=== PATIENT | female | born 1985 | race American Indian/Alaskan Native ===

== ENCOUNTER 2016-10-29 09:31 | Emergency (ER) | payer MEDICAID, OTHER ==
[2016-10-29 09:44] VITALS: BP 103/69
[2016-10-29 10:13] LABS: Basophils % (Auto) 0.8 % (0.0-1.8); Eosinophils % (Auto) 2.9 % (0.0-4.3); Hematocrit 38.5 % (30.3-42.9); Hemoglobin 12.9 gm/dl (10.1-14.3); Mean Corpuscular HGB Conc 34 % (30-34); Mean Corpuscular Hemoglobin 28 pg (28-32); Mean Corpuscular Volume 85 fl (79-97); Platelet Count 275 K/mm3 (140-440); Red Blood Count 4.53 M/mm3 (3.65-5.03); Red Cell Distribution Width 13.6 % (13.2-15.2)
[2016-10-29 10:17] LABS: INR 1.05 (0.87-1.13)
[2016-10-29 10:18] LABS: Partial Thromboplastin Time 28.3 Sec. (24.2-36.6)
[2016-10-29 10:22] LABS: Anion Gap 15 mmol/L; BUN/Creatinine Ratio 18.33; Blood Urea Nitrogen 11 mg/dL (7-17); Calcium 8.9 mg/dL (8.4-10.2); Carbon Dioxide 27 mmol/L (22-30); Chloride 102.4 mmol/L (98-107); Glucose 80 mg/dL (65-100); Potassium 3.9 mmol/L (3.6-5.0); Sodium 140 mmol/L (137-145)
[2016-10-29 11:01] LABS: Bilirubin,Urine NEG (Negative); Blood,Urine NEG (Negative); Ketones,Urine NEG (Negative); Leukocyte Esterase,Urine NEG (Negative); Mucus,Urine FEW /HPF; Nitrite,Urine NEG (Negative); Protein,Urine <15 mg/dL mg/dL (Negative); RBC,Urine < 1.0 /HPF (0.0-6.0); Urobilinogen,Urine < 2.0 mg/dL (<2.0); WBC,Urine < 1.0 /HPF (0.0-6.0)
== END 2016-10-29 13:56 | disposition left against medical advice (07) ==
LOC: ED 09:31
DX: M79.604 Pain in right leg (principal); R22.41 Localized swelling, mass and lump, right lower limb; R07.89 Other chest pain; D64.9 Anemia, unspecified; Z72.0 Tobacco use; Z53.21 Procedure and treatment not carried out due to patient leaving prior to being seen by health care provider
CPT/HCPCS: 36415; 80048; 81001; 81025; 84484; 85025; 85610; 85730; 93005; 93010

== ENCOUNTER 2017-06-12 20:53 | Emergency (ER) | payer OTHER, MEDICAID ==
[2017-06-12 22:06] LABS: HCG Qualitative,Urine Negative (Negative)
[2017-06-12 23:16] LABS: Bilirubin,Urine NEG (Negative); Blood,Urine NEG (Negative); Color,Urine Yellow (Yellow); Mucus,Urine FEW /HPF; Protein,Urine <15 mg/dL mg/dL (Negative); Urobilinogen,Urine < 2.0 mg/dL (<2.0)
--- NOTE | 2017-06-12 23:34 | XRay Report ---
FINAL REPORT EXAM: XR SPINE CERVICAL 2-3V HISTORY: Neck pain TECHNIQUE: Four views of the cervical spine: AP, lateral and odontoid views. PRIORS: None. FINDINGS: There is mild loss of the usual cervical lordosis. Vertebral body heights are preserved and there is no abnormal vertebral body subluxation. The prevertebral soft tissues within normal limits. The atlanto dens interval is preserved. The lateral masses are well opposed. No cervical ribs. Lung apices clear. IMPRESSION: No acute osseous abnormality. Mild loss of the usual cervical lordosis may be secondary to patient positioning or muscle spasm.
--- NOTE | 2017-06-12 23:36 | XRay Report ---
FINAL REPORT EXAM: XR SPINE LUMBOSACRAL 2-3V HISTORY: Back pain TECHNIQUE: Four views of the lumbar spine: AP and lateral projections. PRIORS: None. FINDINGS: Convex left thoracolumbar curvature is present. There are 5, [id number] lumbar vertebral bodies. No pathologic calcifications overlie the abdomen. The posterior elements are intact and there is no spondylolisthesis. Vertebral body heights and intervertebral disc spaces are preserved. IMPRESSION: No acute osseous abnormality or significant degenerative change. Mild convex left thoracolumbar curvature.
[2017-06-13] MEDS ORDERED: MOTRIN PO ONE (01:38)
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
[2017-06-13 02:16] VITALS: BP 103/67
== END 2017-06-13 02:18 | disposition home or self-care (01) ==
LOC: ED 20:53
DX: S13.4XXA Sprain of ligaments of cervical spine, initial encounter (principal); R51 Headache; V89.2XXA Person injured in unspecified motor-vehicle accident, traffic, initial encounter; Y93.89 Activity, other specified; Y92.89 Other specified places as the place of occurrence of the external cause; Y99.8 Other external cause status
CPT/HCPCS: 72040; 72100; 81001; 81025; 93005; 93010

== ENCOUNTER 2017-12-19 17:22 | Outpatient (CLI) | payer MEDICAID ==
--- NOTE | 2017-12-19 19:52 | Ultrasound Report ---
FINAL REPORT EXAM: US OB LIMITED HISTORY: Please measure cervical length COMPARISON: None available. TECHNIQUE: Several real-time grayscale and color Doppler images were obtained. FINDINGS: Limited exam performed. Single live IUP. heart rate 141 beats per minute. presentation cephalic. Placenta location anterior. No placenta previa. The cervix is closed and measures 3.1 centimeters in length. IMPRESSION: Limited exam. Single live IUP demonstrated with cephalic position. Cervix is closed measuring 3.1 centimeters in length.
[2017-12-19] MEDS ORDERED: CELESTONE SOLUSPAN IM ONE (20:27)
[2017-12-19 20:35] VITALS: BP 100/58
[2017-12-19 22:52] LABS: Bilirubin,Urine NEG (Negative); Blood,Urine NEG (Negative); Color,Urine Yellow (Yellow); Mucus,Urine 3+ /HPF
[2017-12-19 22:58] LABS: Amphetamine Screen,Urine PRESUMPTIVE NEGATIVE; Benzodiazepines Screen,Urine PRESUMPTIVE NEGATIVE; Methadone Screen,Urine PRESUMPTIVE NEGATIVE; Opiate Screen,Urine PRESUMPTIVE NEGATIVE
[2017-12-19 23:19] LABS: Cannabinoid Screen,Urine PRESUMPTIVE POSITIVE; Cocaine Screen,Urine PRESUMPTIVE POSITIVE
--- NOTE | 2017-12-21 07:46 | Event Note ---
Date: 12/19/17 Triage note for 12/19/17: 32 year old female presents to triage for EFM. She states she was told by her OB provider to come in for monitoring yesterday but she did not have child welfare specialist so she waited until today. She states she had a positive fibronectin test at the office so was told to come monitor for contractions. Patient denies contractions or abdominal pain. She denies LOF or VB. She reports active movement. EDC 02/19/18. EGA 26 weeks. Vital signs are stable, patient is A&O, NAD. Abdomen is soft, nontender. No contractions palpated or noted per monitor. Category 1 FHR tracing, appropriate for gestational age. Cervix closed and thick. Patient was found not to be in active labor. Patient was given her first Celestone injection and was told to follow up tomorrow for her second Celestone injection. Advised pt. to rest and avoid IC /sexual activity. Signs of labor and warning signs discussed. Advised pt. to follow up at [facility] this week.
== END 2017-12-19 20:50 | disposition home or self-care (01) ==
LOC: TRG 17:22
PROVIDERS: ATTEND Obstetrics & Gynecology
DX: O47.02 False labor before 37 completed weeks of gestation, second trimester (principal); Z3A.26 26 weeks gestation of pregnancy
CPT/HCPCS: 59025; 76815; 80307; 81001; 96372; J0702

== ENCOUNTER 2017-12-20 23:02 | Outpatient (CLI) | payer MEDICAID ==
[2017-12-20] MEDS ORDERED: CELESTONE SOLUSPAN IM ONE (23:13)
[2017-12-20 23:36] VITALS: BP 105/69
--- NOTE | 2017-12-21 07:39 | Event Note ---
Date: 12/20/17 Triage note for 12/20/17 32 year old at 26 weeks, 1 day gestation presents for second Celestone injection only. Patient reports active movement while here in triage. EFM cat 1/AGA. No contractions, LOF, or VB. Patient received Celestone injection and was told to follow up at [facility] early this week.
== END 2017-12-21 00:15 | disposition home or self-care (01) ==
LOC: TRG 23:02
PROVIDERS: ATTEND Obstetrics & Gynecology
DX: O36.0120 Maternal care for anti-D [Rh] antibodies, second trimester, not applicable or unspecified (principal); O36.8120 Decreased fetal movements, second trimester, not applicable or unspecified; Z3A.26 26 weeks gestation of pregnancy
CPT/HCPCS: 59025; 96372; J0702

== ENCOUNTER 2018-04-08 16:18 | Emergency (ER) | payer MEDICAID ==
[2018-04-08 17:20] LABS: Basophils % (Auto) 0.7 % (0.0-1.8); Eosinophils # (Auto) 0.1 K/mm3 (0.0-0.4); Eosinophils % (Auto) 2.2 % (0.0-4.3); Hematocrit 33.2 % (30.3-42.9); Lymphocytes % (Auto) 30.8 % (13.4-35.0); Mean Corpuscular HGB Conc 33 % (30-34); Mean Corpuscular Volume 83 fl (79-97); Monocytes # (Auto) 0.4 K/mm3 (0.0-0.8); Monocytes % (Auto) 6.6 % (0.0-7.3); Platelet Count 401 K/mm3 (140-440); Red Blood Count 4.02 M/mm3 (3.65-5.03); Red Cell Distribution Width 14.7 % (13.2-15.2)
[2018-04-08 17:38] LABS: BUN/Creatinine Ratio 13; Blood Urea Nitrogen 9 mg/dL (7-17); Hemolysis Index 6
[2018-04-08] MEDS ORDERED: PROVENTIL IH ONE (20:09)
[2018-04-08] MEDS ORDERED: ATROVENT IH ONE (20:09)
[2018-04-08] MEDS ORDERED: TESSALON PERLES PO ONE (20:10)
--- NOTE | 2018-04-08 20:28 | XRay Report ---
FINAL REPORT EXAM: XR CHEST ROUTINE 2V HISTORY: Shortness of breath TECHNIQUE: PA and lateral views of the chest PRIORS: CXR 03/21/2018 FINDINGS: Lines, tubes, and devices: N/A Lungs and pleura: Trachea is normal in position. Lungs are clear of infiltrate, pleural effusion, va scular congestion, or pneumothorax. No change. Cardiomediastinal silhouette: Cardiac and mediastinal silhouettes are unremarkable. Other: Bony structures are intact. IMPRESSION: No acute cardiopulmonary process seen. No change.
--- NOTE | 2018-04-08 20:47 | Emergency Department Report ---
HPI - General Chief Complaint: Chest Pain Time Seen by Provider: 04/08/18 20:00 - HPI HPI: Nicola Randhawa The patient is a 33-year-old female presenting with a chief complaint of chest pain and cough. The patient states she's had an occasional cough since 03/06 has been productive of yellow sputum. The patient states for one week she's had chest pain as well as back pain is sharp in nature and intermittent. Patient denies pleurisy but admits to slight shortness of breath. Patient denies fever but admits to slight rhinorrhea. Her pain score of 7/10. The patient is 03/15/2018 Location: Lungs, chest Duration: One week, see above Quality: Sharp Severity: 7/10 Modifying factors: [see above] Context: [see above] Mode of transportation: The patient drove herself to the emergency department and there are no visitors present ED Past Medical Hx - Past Medical History Previous Medical History?: Yes Additional medical history: anemia. Preeclampsia with previous but not last - Surgical History Past Surgical History?: Yes Additional Surgical History: Ectopic , Right foot surgery, - Family History Family history: no significant - Social History Smoking Status: Former Smoker (none 4 years) Substance Use Type: None (denies illicit drug use) - Medications Home Medications: Home Medications Medication Instructions Recorded Confirmed Last Taken Type Aspirin [Aspirin EC] 1 tab PO QDAY 03/14/18 03/22/18 2 Days Ago History ~03/20/18 Cholecalciferol (Vitamin D3) 1 tab PO QDAY 03/14/18 03/22/18 2 Days Ago History [Vitamin D3] ~03/20/18 Ferrous Sulfate [Feosol 325 MG tab] 1 tab PO QDAY 03/14/18 03/22/18 2 Days Ago History ~03/20/18 Pnv,Calcium 72/Iron/Folic Acid 1 tab PO QDAY 03/14/18 03/22/18 2 Days Ago History [Pnv Plus Multivit Tab] ~03/20/18 Ibuprofen [Motrin 800 MG tab] 800 mg PO Q8HR PRN 30 Days tablet 03/15/18 03/22/18 2 Days Ago Rx ~03/20/18 oxyCODONE /ACETAMINOPHEN [Percocet 1 tab PO Q4HR #14 tab 03/15/18 03/22/18 2 Days Ago Rx 5/325 mg] ~03/20/18 guaiFENesin DM [Guaifenesin Dm 10 ml PO Q4H PRN #1 bottle 03/24/18 Unknown Rx Syrup] ALBUTEROL Inhaler (OR & NICU) 2 puff IH QID PRN #1 inhalation 04/08/18 Unknown Rx [Proair] Amoxicillin/Potassium Clav 1 each PO BID #20 tablet 04/08/18 Unknown Rx [Augmentin 875-125 Tablet] Benzonatate [Tessalon Perle] 100 mg PO TID PRN #30 capsule 04/08/18 Unknown Rx ED Review of Systems ROS: Stated complaint: CHEST PAIN/COUGHING Other details as noted in HPI Constitutional: denies: fever Eyes: denies: eye pain ENT: denies: throat pain Respiratory: cough, shortness of breath Cardiovascular: chest pain Endocrine: no symptoms reported Gastrointestinal: denies: abdominal pain Genitourinary: denies: dysuria Musculoskeletal: back pain Neurological: denies: headache Physical Exam - Physical Exam Vital Signs: Vital Signs 04/08/18 04/08/18 16:33 19:45 Temperature 97.7 F 98.3 F Pulse Rate 84 80 Respiratory 20 16 Rate Blood Pressure 107/59 110/82 O2 Sat by Pulse 99 99 Oximetry Physical Exam: GENERAL: The patient is well-developed well-nourished female lying on stretcher not appearing to be in acute distress. [] HEENT: Normocephalic. Atraumatic. Extraocular motions are intact. Patient has moist mucous membranes. NECK: Supple. Trachea midline CHEST/LUNGS: Clear to auscultation. There is no respiratory distress noted. HEART/CARDIOVASCULAR: Regular. There is no tachycardia. There is no gallop rub or murmur. ABDOMEN: Abdomen is soft, nontender. Patient has normal bowel sounds. There is no abdominal distention. SKIN: There is no rash. There is no edema. There is no diaphoresis. NEURO: The patient is awake, alert, and oriented. The patient is cooperative. The patient has normal speech MUSCULOSKELETAL: There is no evidence of acute injury. ED Course Vital Signs 04/08/18 04/08/18 16:33 19:45 Temperature 97.7 F 98.3 F Pulse Rate 84 80 Respiratory 20 16 Rate Blood Pressure 107/59 110/82 O2 Sat by Pulse 99 99 Oximetry ED Medical Decision Making - Lab Data Result diagrams: 04/08/18 16:59 04/08/18 16:59 Laboratory Tests 04/08/18 04/08/18 04/08/18 16:59 16:59 20:21 WBC 6.6 RBC 4.02 Hgb 11.0 Hct 33.2 MCV 83 MCH 27 L MCHC 33 RDW 14.7 Plt Count 401 Lymph % (Auto) 30.8 Johnston % (Auto) 6.6 Eos % (Auto) 2.2 Baso % (Auto) 0.7 Lymph # 2.0 Johnston # 0.4 Eos # 0.1 Baso # 0.0 Seg Neutrophils % 59.7 Seg Neutrophils # 4.0 Sodium 139 Potassium 3.8 Chloride 102.4 Carbon Dioxide 27 Anion Gap 13 BUN 9 Creatinine 0.7 Estimated GFR > 60 BUN/Creatinine Ratio 13 Glucose 95 Calcium 9.0 Troponin T < 0.010 < 0.010 NT-Pro-B Natriuret Pep 04/08/18 20:21 WBC RBC Hgb Hct MCV MCH MCHC RDW Plt Count Lymph % (Auto) Johnston % (Auto) Eos % (Auto) Baso % (Auto) Lymph # Johnston # Eos # Baso # Seg Neutrophils % Seg Neutrophils # Sodium Potassium Chloride Carbon Dioxide Anion Gap BUN Creatinine Estimated GFR BUN/Creatinine Ratio Glucose Calcium Troponin T NT-Pro-B Natriuret Pep 25.32 - EKG Data -: EKG Interpreted by Me EKG shows normal: sinus rhythm Rate: normal - EKG Data When compared to previous EKG there are: previous EKG unavailable Interpretation: other (no ischemic changes seen) - Radiology Data Radiology results: report reviewed (chest x-ray, CT chest), image reviewed (chest x-ray, CT chest) interpreted by me: Chest x-ray-no focal infiltrates, no pneumothorax [facility] [address] [place] [address] XRay Report Signed Patient: LOLLY KILGORE MR#: [id number] : 1985 Acct:[id number] Age/Sex: 33 / F ADM Date: 04/08/18 Loc: ED Attending Dr: Ordering Physician: PAO MONK MD Date of Service: 04/08/18 Procedure(s): XR chest routine 2V Accession Number(s): [id number] cc: PAO MONK MD Fluoro Time In Minutes: FINAL REPORT EXAM: XR CHEST ROUTINE 2V HISTORY: Shortness of breath TECHNIQUE: PA and lateral views of the chest PRIORS: CXR 03/21/2018 FINDINGS: Lines, tubes, and devices: N/A Lungs and pleura: Trachea is normal in position. Lungs are clear of infiltrate, pleural effusion, vascular congestion, or pneumothorax. No change. Cardiomediastinal silhouette: Cardiac and mediastinal silhouettes are unremarkable. Other: Bony structures are intact. IMPRESSION: No acute cardiopulmonary process seen. No change. Transcribed By: [facility] Dictated By: JUAN DSOUZA MD Electronically Authenticated By: JUAN DSOUZA MD Signed Date/Time: 04/08/182027 DD/ 29 TD/TT: 04/08/182029 [facility] [address] [place] [address] Cat Scan Report Signed Patient: LOLLY KILGORE MR#: [id number] : 1985 Acct:[id number] Age/Sex: 33 / F ADM Date: 04/08/18 Loc: ED Attending Dr: Ordering Physician: PAO MONK MD Date of Service: 04/08/18 Procedure(s): CT angio chest Accession Number(s): [id number] cc: PAO MONK MD FINAL REPORT EXAM: CT ANGIO CHEST HISTORY: chest pain, shortness of breath TECHNIQUE: Enhanced CT of the chest at 1.25 mm axial intervals following a pulmonary embolism protocol. Coronal and sagittal imaging were also obtained. Coronal oblique MIP projections were obtained. Contrast: 100 ml of Omnipaque 350 given IV. PRIORS: CT chest 03/11/2018 FINDINGS: There is no evidence for pulmonary embolism in the main pulmonary artery, right and left pulmonary arteries or their major distributions. However, CT does not exclude distal pulmonary emboli. In the left lower lobe posterior medially, there is consol idation with air bronchograms suggesting an alveolar infiltrate and pneumonia. Otherwise, there is no evidence for parenchymal nodules, congestion, or pleural effusion. There is no evidence for mediastinal, hilar, or axillary adenopathy. Cardiovascular structures are within normal limits. No evidence for ventricular chamber enlargement is seen. Images through the lung bases include the upper abdomen which show no abnormalities of the visualized abdominal viscera. Bony structures demonstrate no focal abnormalities. IMPRESSION: No evidence for pulmonary embolism. Alveolar infiltrate in the left lower lobe posteriorly. Transcribed By: [facility] Dictated By: JUAN DSOUZA MD Electronically Authenticated By: JUAN DSOUZA MD Signed Date/Time: 04/08/182139 DD/ 40 TD/TT: 04/08/182140 - Differential Diagnosis bronchitis, pneumonia, influenza, PE, ACS Critical care attestation.: If time is entered above; I have spent that time in minutes in the direct care of this critically ill patient, excluding procedure time. ED Disposition Clinical Impression: Chest pain, Pneumonia Disposition: TO HOME OR SELFCARE Is pt being admited?: No Does the pt Need Aspirin: No Condition: Stable Instructions: Chest Pain (ED), Bacterial Pneumonia (ED) Additional Instructions: It is important that you pump and dump your breast milk for at least 3 days after receiving your CT scan with IV contrast today. Failure to do so may result in harm to your baby as contrast is transmitted in breast milk. Return to the emergency department immediately should you develop worsening symptoms, fever, inability to tolerate food or liquid or any other concerns. Prescriptions: ALBUTEROL Inhaler (OR & NICU) [Proair] 2 puff IH QID PRN #1 inhalation PRN Reason: Shortness Of Breath Amoxicillin/Potassium Clav [Augmentin 875-125 Tablet] 1 each PO BID #20 tablet Benzonatate [Tessalon Perle] 100 mg PO TID PRN #30 capsule PRN Reason: Cough Referrals: PRIMARY CAREMD [Primary Care Provider] - 3-5 Days Time of Disposition: 22:10
--- NOTE | 2018-04-08 21:40 | Cat Scan Report ---
FINAL REPORT EXAM: CT ANGIO CHEST HISTORY: chest pain, shortness of breath TECHNIQUE: Enhanced CT of the chest at 1.25 mm axial intervals following a pulmonary embolism protoc ol. Coronal and sagittal imaging were also obtained. Coronal oblique MIP projections were obtained. Contrast: 100 ml of Omnipaque 350 given IV. PRIORS: CT chest 03/11/2018 FINDINGS: There is no evidence for pulmonary embolism in the main pulmonary artery, right and left pulmonary ar teries or their major distributions. However, CT does not exclude distal pulmonary emboli. In the left lower lobe posterior medially, there is consolidation with air bronchograms suggesting an alveolar infiltrate and pneumonia. Otherwise, there is no evidence for parenchymal nodules, congestion, or pleural effusion. There is n o evidence for mediastinal, hilar, or axillary adenopathy. Cardiovascular structures are within charlie l limits. No evidence for ventricular chamber enlargement is seen. Images through the lung bases include the upper abdomen which show no abnormalities of the visualized abdominal viscera. Bony structures demonstrate no focal abnormalities. IMPRESSION: No evidence for pulmonary embolism. Alveolar infiltrate in the left lower lobe posteriorly.
[2018-04-08 22:56] VITALS: BP 127/80
== END 2018-04-08 22:18 | disposition home or self-care (01) ==
LOC: ED 16:18
DX: J18.9 Pneumonia, unspecified organism (principal); Z87.891 Personal history of nicotine dependence; Z79.82 Long term (current) use of aspirin
CPT/HCPCS: 36415; 71046; 71275; 80048; 83880; 84484; 85025; 93005; 93010; 94640; 99285; Q9967; 94644

== ENCOUNTER 2018-05-01 18:35 | Inpatient (IN) | payer MEDICAID ==
--- NOTE | 2018-05-01 20:15 | Emergency Department Report ---
ED Chest Pain HPI - General Chief Complaint: Chest Pain Stated Complaint: CHEST PAIN/SOB/HEADACHE Time Seen by Provider: 05/01/18 20:15 Source: patient Mode of arrival: Ambulatory Limitations: No Limitations - History of Present Illness Initial Comments: Patient is a 33-year-old female that presents to emergency room with complaints of chest pain or shortness of breath. Patient states the chest pain is in her substernal and radiates into her left arm. Patient states that the chest pain going on for 2 days and is worsening. Patient states the chest pain is a 4 out of 10. Patient states that the chest pain is better with rest and worse with exertion. Patient states the shortness of breath is better with rest and worse with exertion. Patient also complains of headache at 3 out of 10 for 1 month. Patient states that she was recently diagnosed with congestive heart failure and pneumonia here. Patient states that his heart rate came up after giving to her child. Patient then was diagnosed a week later with pneumonia. MD Complaint: chest pain Onset: during rest Pain Location: substernal, left chest Pain Radiation: LUE Severity: moderate Severity scale (0 -10): 4 Improves With: rest Worsens With: exertion re: dyspnea. denies: nausea, vomting, diaphoresis, sense of impending doom Other Symptoms: denies: cough, fever, syncope, rash, acid taste in mouth, leg swelling, palpitations, burping Treatments Prior to Arrival: none Aspirin use within the Past 7 Days: (0) No - Related Data On Oral Contraceptives: No Home Medications Medication Instructions Recorded Confirmed Last Taken Aspirin [Aspirin EC] 1 tab PO QDAY 03/14/18 03/22/18 2 Days Ago ~03/20/18 Cholecalciferol (Vitamin D3) 1 tab PO QDAY 03/14/18 03/22/18 2 Days Ago [Vitamin D3] ~03/20/18 Ferrous Sulfate [Feosol 325 MG tab] 1 tab PO QDAY 03/14/18 03/22/18 2 Days Ago ~03/20/18 Pnv,Calcium 72/Iron/Folic Acid 1 tab PO QDAY 03/14/18 03/22/18 2 Days Ago [Pnv Plus Multivit Tab] ~03/20/18 Previous Rx's Medication Instructions Recorded Last Taken Type Ibuprofen [Motrin 800 MG tab] 800 mg PO Q8HR PRN 30 Days tablet 03/15/18 2 Days Ago Rx ~03/20/18 oxyCODONE /ACETAMINOPHEN [Percocet 1 tab PO Q4HR #14 tab 03/15/18 2 Days Ago Rx 5/325 mg] ~03/20/18 guaiFENesin DM [Guaifenesin Dm 10 ml PO Q4H PRN #1 bottle 03/24/18 Unknown Rx Syrup] ALBUTEROL Inhaler (OR & NICU) 2 puff IH QID PRN #1 inhalation 04/08/18 Unknown Rx [Proair] Amoxicillin/Potassium Clav 1 each PO BID #20 tablet 04/08/18 Unknown Rx [Augmentin 875-125 Tablet] Benzonatate [Tessalon Perle] 100 mg PO TID PRN #30 capsule 04/08/18 Unknown Rx Allergies Allergy/AdvReac Type Severity Reaction Status Date / Time No Known Allergies Allergy Verified 05/01/18 19:08 Heart Score - HEART Score History: Moderately suspicious EKG: Normal Age: < 45 Risk factors: No known risk factors Troponin: < normal limit HEART Score: 1 ED Review of Systems ROS: Stated complaint: CHEST PAIN/SOB/HEADACHE Other details as noted in HPI Constitutional: denies: chills, fever Eyes: denies: eye pain, eye discharge, vision change ENT: denies: ear pain, throat pain Respiratory: shortness of breath. denies: cough, wheezing Cardiovascular: chest pain. denies: palpitations Endocrine: no symptoms reported Gastrointestinal: denies: abdominal pain, nausea, diarrhea Genitourinary: denies: urgency, dysuria, discharge Musculoskeletal: denies: back pain, joint swelling, arthralgia Skin: denies: rash, lesions Neurological: headache. denies: weakness, paresthesias Psychiatric: denies: anxiety, depression Hematological/Lymphatic: denies: easy bleeding, easy bruising ED Past Medical Hx - Past Medical History Previous Medical History?: Yes Hx Hypertension: No Hx Congestive Heart Failure: Yes Hx Diabetes: No Hx Deep Vein Thrombosis: No Hx Liver Disease: No Hx Renal Disease: No Hx Sickle Cell Disease: No Hx Seizures: No Hx Asthma: No Hx COPD: No Hx HIV: No Additional medical history: anemia. Preeclampsia with previous but not last - Surgical History Past Surgical History?: Yes Additional Surgical History: Ectopic , Right foot surgery, - Family History Family history: no significant - Social History Smoking Status: Never Smoker Substance Use Type: None - Medications Home Medications: Home Medications Medication Instructions Recorded Confirmed Last Taken Type Aspirin [Aspirin EC] 1 tab PO QDAY 03/14/18 03/22/18 2 Days Ago History ~03/20/18 Cholecalciferol (Vitamin D3) 1 tab PO QDAY 03/14/18 03/22/18 2 Days Ago History [Vitamin D3] ~03/20/18 Ferrous Sulfate [Feosol 325 MG tab] 1 tab PO QDAY 03/14/18 03/22/18 2 Days Ago History ~03/20/18 Pnv,Calcium 72/Iron/Folic Acid 1 tab PO QDAY 03/14/18 03/22/18 2 Days Ago History [Pnv Plus Multivit Tab] ~03/20/18 Ibuprofen [Motrin 800 MG tab] 800 mg PO Q8HR PRN 30 Days tablet 03/15/18 03/22/18 2 Days Ago Rx ~03/20/18 oxyCODONE /ACETAMINOPHEN [Percocet 1 tab PO Q4HR #14 tab 03/15/18 03/22/18 2 Days Ago Rx 5/325 mg] ~03/20/18 guaiFENesin DM [Guaifenesin Dm 10 ml PO Q4H PRN #1 bottle 03/24/18 Unknown Rx Syrup] ALBUTEROL Inhaler (OR & NICU) 2 puff IH QID PRN #1 inhalation 04/08/18 Unknown Rx [Proair] Amoxicillin/Potassium Clav 1 each PO BID #20 tablet 04/08/18 Unknown Rx [Augmentin 875-125 Tablet] Benzonatate [Tessalon Perle] 100 mg PO TID PRN #30 capsule 04/08/18 Unknown Rx ED Physical Exam - General Limitations: No Limitations General appearance: alert, in no apparent distress - Head Head exam: Present: atraumatic, normocephalic - Eye Eye exam: Present: normal appearance - ENT ENT exam: Present: mucous membranes moist - Neck Neck exam: Present: normal inspection - Respiratory Respiratory exam: Present: normal lung sounds bilaterally. Absent: respiratory distress - Cardiovascular Cardiovascular Exam: Present: regular rate, normal rhythm. Absent: systolic murmur, diastolic murmur, rubs, gallop - GI/Abdominal GI/Abdominal exam: Present: soft, normal bowel sounds - Extremities Exam Extremities exam: Present: normal inspection - Back Exam Back exam: Present: normal inspection - Neurological Exam Neurological exam: Present: alert, oriented X3 - Psychiatric Psychiatric exam: Present: normal affect, normal mood - Skin Skin exam: Present: warm, dry, intact, normal color. Absent: rash ED Course Vital Signs 05/01/18 05/01/18 19:08 20:06 Temperature 97.8 F Pulse Rate 72 92 H Respiratory 16 18 Rate Blood Pressure 110/78 O2 Sat by Pulse 98 Oximetry - Reevaluation(s) Reevaluation #1: Discussed all results with patient. Patient agrees to plan of care and CTA. 05/01/18 23:26 Discussed all results with patient. Patient agrees with plan of care and admission. Patient admitted to the hospitalist service. 05/02/18 00:51 - Consultations Consultation #1: Hospitalist consulted for admission. Hospital was to admit patient. 05/02/18 00:47 ANTONIO score - Antonio Score Age > 65: (0) No Aspirin use within the Past 7 Days: (0) No 3 or more CAD Risk Factors: (0) No 2 or more Angina events in past 24 hrs: (0) No Known CAD with more than 50% Stenosis: (0) No Elevated Cardiac Markers: (0) No ST Deviation Greater than 0.5mm: (0) No ANTONIO Score: 0 ED Medical Decision Making - Lab Data Result diagrams: 05/01/18 21:35 05/01/18 21:35 - EKG Data -: EKG Interpreted by Me EKG shows normal: sinus rhythm, axis, intervals, QRS complexes, ST-T waves Rate: normal - Radiology Data Radiology results: report reviewed, image reviewed interpreted by me: Normal limits chest x-ray CT head negative. Chest x-ray negative - Medical Decision Making Patient is a 33-year-old female's emergency room with complaints of shortness of breath, chest pain and headache. Patient recently diagnosed with CHF and pneumonia. 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 Patient was admitted to the hospitalist service. Patient's initial cardiac workup negative. Patient had a CTA her chest pain shortness of breath and was negative for PE. - Differential Diagnosis chest pain. ACS. Shortness of breath. Critical Care Time: Yes Critical care attestation.: If time is entered above; I have spent that time in minutes in the direct care of this critically ill patient, excluding procedure time. Critical Care Time: 35 minutes ED Disposition Clinical Impression: SOB (shortness of breath), Elevated d-dimer Chest pain Qualifiers: Chest pain type: unspecified Qualified Code(s): R07.9 - Chest pain, unspecified CHF (congestive heart failure) Qualifiers: Heart failure type: unspecified Heart failure chronicity: unspecified Qualified Code(s): I50.9 - Heart failure, unspecified Disposition: 09 OP ADMIT IP TO THIS HOSP Is pt being admited?: Yes Does the pt Need Aspirin: No Condition: Critical Time of Disposition: 00:54
[2018-05-01] MEDS ORDERED: ASPIRIN PO ONE (21:25)
[2018-05-01 21:54] LABS: Basophils % (Auto) 0.4 % (0.0-1.8); Eosinophils # (Auto) 0.1 K/mm3 (0.0-0.4); Eosinophils % (Auto) 1.5 % (0.0-4.3); Hematocrit 34.7 % (30.3-42.9); Hemoglobin 11.5 gm/dl (10.1-14.3); Lymphocytes # (Auto) 2.6 K/mm3 (1.2-5.4); Lymphocytes % (Auto) 46.3 % (13.4-35.0); Mean Corpuscular HGB Conc 33 % (30-34); Mean Corpuscular Volume 82 fl (79-97); Monocytes # (Auto) 0.3 K/mm3 (0.0-0.8); Monocytes % (Auto) 4.6 % (0.0-7.3); Platelet Count 306 K/mm3 (140-440); Red Blood Count 4.26 M/mm3 (3.65-5.03); Red Cell Distribution Width 14.3 % (13.2-15.2)
[2018-05-01 22:13] LABS: Alanine Aminotransferase 8 units/L (7-56); Albumin 3.9 g/dL (3.9-5); BUN/Creatinine Ratio 15; Blood Urea Nitrogen 9 mg/dL (7-17); Calcium 9.1 mg/dL (8.4-10.2); Hemolysis Index 11
[2018-05-01] MEDS ORDERED: MORPHINE ONE (23:45)
[2018-05-01] MEDS ORDERED: ZOFRAN ONE (23:55)
--- NOTE | 2018-05-02 | XRay Report ---
FINAL REPORT PROCEDURE: XR CHEST 1V AP TECHNIQUE: Chest radiograph anteroposterior view. CPT 62437 HISTORY: Chest Pain COMPARISON: No prior studies are available for comparison. FINDINGS: Heart: Normal. Mediastinum/Vessels: Normal. Lungs/Pleural space: Normal. Bony thorax: No acute osseous abnormality. Life support devices: None. IMPRESSION: No acute cardiopulmonary abnormality.
--- NOTE | 2018-05-02 00:34 | Cat Scan Report ---
FINAL REPORT PROCEDURE: CT ANGIO CHEST TECHNIQUE: Computerized axial tomographic angiography of the chest and pulmonary arteries was perfor med after the IV injection of iodinated nonionic contrast. The image data was postprocessed using max imum intensity projection (MIP) and 2-dimensional multiplanar reformatted (MPR) techniques. The exami nation is specifically tailored to the evaluation of the pulmonary arteries per clinical request. HISTORY: Short of breath 786.09, chest pain 786.50, sob. cp,. COMPARISON: No prior studies are available for comparison. FINDINGS: Heart and pericardium: Normal. Thoracic aorta: Normal. Pulmonary vasculature: Normal. No pulmonary emboli. Lymph nodes: No enlarged thoracic lymph nodes. Lungs: Normal. Pleural space: No effusion, thickening, or pneumothorax. Musculoskeletal structures: No significant abnormality. Upper abdominal structures: No significant abnormality. IMPRESSION: Normal Examination.
[2018-05-02] MEDS ORDERED: MORPHINE IV ONE (01:51)
[2018-05-02] MEDS ORDERED: ZOFRAN IV ONE (01:52)
[2018-05-02] MEDS ORDERED: SODIUM CHLORIDE FLUSH SYRINGE 10 ML IV PRN ×3 (05:31→07:37)
[2018-05-02] MEDS ORDERED: TYLENOL PO PRN ×2 (05:31→07:37)
[2018-05-02] MEDS ORDERED: NITROSTAT SL PRN (05:31)
[2018-05-02] MEDS ORDERED: ZOFRAN IV PRN ×2 (05:31→07:37)
[2018-05-02 06:48] LABS: Basophils % (Auto) 0.6 % (0.0-1.8); Eosinophils # (Auto) 0.1 K/mm3 (0.0-0.4); Eosinophils % (Auto) 1.8 % (0.0-4.3); Hematocrit 34.7 % (30.3-42.9); Hemoglobin 11.5 gm/dl (10.1-14.3); Lymphocytes # (Auto) 2.3 K/mm3 (1.2-5.4); Lymphocytes % (Auto) 47.3 % (13.4-35.0); Mean Corpuscular HGB Conc 33 % (30-34); Mean Corpuscular Volume 82 fl (79-97); Monocytes # (Auto) 0.3 K/mm3 (0.0-0.8); Monocytes % (Auto) 5.8 % (0.0-7.3); Platelet Count 317 K/mm3 (140-440); Red Blood Count 4.24 M/mm3 (3.65-5.03); Red Cell Distribution Width 14.3 % (13.2-15.2)
[2018-05-02 07:00] LABS: BUN/Creatinine Ratio 11; Blood Urea Nitrogen 8 mg/dL (7-17); Calcium 8.5 mg/dL (8.4-10.2); Hemolysis Index 17
--- NOTE | 2018-05-02 07:00 | History and Physical Report ---
History of Present Illness Date of examination: 05/02/18 Date of admission: 05/02/2018 Chief complaint: Chest pain History of present illness: Patient is a 33-year-old female with past medical history of CHF, - induced hypertension, now hypotensive, prior pneumonia, 7 weeks who presents to the ER with complaint of chest pain and shortness of breath a few hours prior to arrival. Patient states that she was having a sharp pain on her right side of her chest and her left side, she described a sharp pain associated with shortness of breath and hurts with deep breath. patient reports nonspecific pain in her head and bilateral arms that is concerning to her because she states of her previous health issues. Patient reports occasional cough, denies any dizziness, denies syncope, denies nausea or vomiting, denies fever, denies chills. In the ER patient had a CTA chest x-ray which was negative, EKG showed no STEMI criteria, her cardiac enzymes were negative. Patient is placed in observation for monitoring for the chest pain. Past History Past Medical History: heart failure, hypertension (-induced) Past Surgical History: No surgical history Social history: no significant social history Family history: no significant family history Medications and Allergies Allergies Allergy/AdvReac Type Severity Reaction Status Date / Time No Known Allergies Allergy Verified 05/01/18 19:08 Home Medications Medication Instructions Recorded Confirmed Last Taken Type Aspirin [Aspirin EC] 1 tab PO QDAY 03/14/18 03/22/18 2 Days Ago History ~03/20/18 Cholecalciferol (Vitamin D3) 1 tab PO QDAY 03/14/18 03/22/18 2 Days Ago History [Vitamin D3] ~03/20/18 Ferrous Sulfate [Feosol 325 MG tab] 1 tab PO QDAY 03/14/18 03/22/18 2 Days Ago History ~03/20/18 Pnv,Calcium 72/Iron/Folic Acid 1 tab PO QDAY 03/14/18 03/22/18 2 Days Ago History [Pnv Plus Multivit Tab] ~03/20/18 Ibuprofen [Motrin 800 MG tab] 800 mg PO Q8HR PRN 30 Days tablet 03/15/18 03/22/18 2 Days Ago Rx ~03/20/18 oxyCODONE /ACETAMINOPHEN [Percocet 1 tab PO Q4HR #14 tab 03/15/18 03/22/18 2 Days Ago Rx 5/325 mg] ~03/20/18 guaiFENesin DM [Guaifenesin Dm 10 ml PO Q4H PRN #1 bottle 03/24/18 Unknown Rx Syrup] ALBUTEROL Inhaler (OR & NICU) 2 puff IH QID PRN #1 inhalation 04/08/18 Unknown Rx [Proair] Amoxicillin/Potassium Clav 1 each PO BID #20 tablet 04/08/18 Unknown Rx [Augmentin 875-125 Tablet] Benzonatate [Tessalon Perle] 100 mg PO TID PRN #30 capsule 04/08/18 Unknown Rx Active Meds: Active Medications Acetaminophen (Tylenol) 650 mg PO Q4H PRN PRN Reason: Pain MILD(1-3)/Fever >100.5/MATTHEWS Aspirin (Ecotrin) 325 mg PO QDAY VIVI Famotidine (Pepcid) 20 mg PO BID VIVI Nitroglycerin (Nitrostat) 0.4 mg SL Q5M PRN PRN Reason: Chest Pain Ondansetron HCl (Zofran) 4 mg IV Q8H PRN PRN Reason: Nausea And Vomiting Sodium Chloride (Sodium Chloride Flush Syringe 10 Ml) 10 ml IV BID VIVI Sodium Chloride (Sodium Chloride Flush Syringe 10 Ml) 10 ml IV PRN PRN PRN Reason: LINE FLUSH Sodium Chloride (Sodium Chloride Flush Syringe 10 Ml) 10 ml IV PRN PRN PRN Reason: LINE FLUSH Review of Systems Cardiovascular: chest pain, shortness of breath Respiratory: cough Exam - Constitutional Vitals: Temp Pulse Resp BP Pulse Ox 97.8 F 66 18 99/57 100 05/01/18 19:08 05/02/18 04:16 05/02/18 04:16 05/02/18 04:16 05/02/18 04:16 General appearance: Present: no acute distress - EENT Eyes: Present: PERRL ENT: hearing intact, clear oral mucosa - Respiratory Respiratory effort: normal Respiratory: bilateral: CTA - Cardiovascular Rhythm: regular Heart Sounds: Present: S1 & S2 - Extremities Extremities: no ischemia Peripheral Pulses: within normal limits - Rectal Rectal Exam: deferred - Integumentary Integumentary: Present: warm, dry - Musculoskeletal Musculoskeletal: strength equal bilaterally - Psychiatric Psychiatric: appropriate mood/affect - Neurologic Neurologic: CNII-XII intact Results - Labs CBC & Chem 7: 05/01/18 21:35 05/01/18 21:35 Labs: Laboratory Last Values WBC 5.6 K/mm3 (4.5-11.0) 05/01/18 21:35 RBC 4.26 M/mm3 (3.65-5.03) 05/01/18 21:35 Hgb 11.5 gm/dl (10.1-14.3) 05/01/18 21:35 Hct 34.7 % (30.3-42.9) 05/01/18 21:35 MCV 82 fl (79-97) 05/01/18 21:35 MCH 27 pg (28-32) L 05/01/18 21:35 MCHC 33 % (30-34) 05/01/18 21:35 RDW 14.3 % (13.2-15.2) 05/01/18 21:35 Plt Count 306 K/mm3 (140-440) 05/01/18 21:35 Lymph % (Auto) 46.3 % (13.4-35.0) H 05/01/18 21:35 [place] % (Auto) 4.6 % (0.0-7.3) 05/01/18 21:35 Eos % (Auto) 1.5 % (0.0-4.3) 05/01/18 21:35 Baso % (Auto) 0.4 % (0.0-1.8) 05/01/18 21:35 Lymph # 2.6 K/mm3 (1.2-5.4) 05/01/18 21:35 [place] # 0.3 K/mm3 (0.0-0.8) 05/01/18 21:35 Eos # 0.1 K/mm3 (0.0-0.4) 05/01/18 21:35 Baso # 0.0 K/mm3 (0.0-0.1) 05/01/18 21:35 Seg Neutrophils % 47.2 % (40.0-70.0) 05/01/18 21:35 Seg Neutrophils # 2.6 K/mm3 (1.8-7.7) 05/01/18 21:35 D-Dimer 230.21 ng/mlDDU (0-234) 05/01/18 21:35 Sodium 140 mmol/L (137-145) 05/01/18 21:35 Potassium 3.8 mmol/L (3.6-5.0) 05/01/18 21:35 Chloride 103.2 mmol/L (98-107) 05/01/18 21:35 Carbon Dioxide 26 mmol/L (22-30) 05/01/18 21:35 Anion Gap 15 mmol/L 05/01/18 21:35 BUN 9 mg/dL (7-17) 05/01/18 21:35 Creatinine 0.6 mg/dL (0.7-1.2) L 05/01/18 21:35 Estimated GFR > 60 ml/min 05/01/18 21:35 BUN/Creatinine Ratio 15 % 05/01/18 21:35 Glucose 92 mg/dL (65-100) 05/01/18 21:35 Calcium 9.1 mg/dL (8.4-10.2) 05/01/18 21:35 Total Bilirubin 0.40 mg/dL (0.1-1.2) 05/01/18 21:35 AST 15 units/L (5-40) 05/01/18 21:35 ALT 8 units/L (7-56) 05/01/18 21:35 Alkaline Phosphatase 109 units/L (35-129) 05/01/18 21:35 Troponin T < 0.010 ng/mL (0.00-0.029) 05/01/18 21:35 NT-Pro-B Natriuret Pep 10.85 pg/mL (0-450) 05/02/18 Unknown Total Protein 6.4 g/dL (6.3-8.2) 05/01/18 21:35 Albumin 3.9 g/dL (3.9-5) 05/01/18 21:35 Albumin/Globulin Ratio 1.6 % 05/01/18 21:35 HCG, Qual Negative (Negative) 05/01/18 21:35 Assessment and Plan Assessment and plan: Patient is a 33-year-old, 7 weeks presents with right sided chest pain, expressed concern for prior illness which are unrelated. 1. Atypical chest pain 2. History of prior CHF (stable) 3. History of pneumonia 4. 7 weeks 5. History of -induced hypertension Plan: Patient is placed in observation for chest pain Continue to monitor vital signs, Cardiac enzymes every 6 hours 2 more Aspirin 325 by mouth daily Resume home meds Analgesics for chest pain when necessary Further plan per hospital course Patient was discussed with patient voiced understanding Patient conditions and plan of care discussed with Dr. Sethi Advance Directives: Yes VTE prophylaxis?: Not ordered (pt is ambulatory) Plan of care discussed with patient/family: Yes
[2018-05-02 07:35] LABS: Chol/HDL Ratio 1.96 %
[2018-05-02] MEDS ORDERED: SODIUM CHLORIDE FLUSH SYRINGE 10 ML IV SCH ×2 (10:00)
--- NOTE | 2018-05-02 11:38 | Progress Note ---
Assessment and Plan Assessment and plan: Atypical chest pain. CT of the chest negative for PE. Lexiscan and echocardiogram ordered. Previous echocardiogram on 03/23 revealed moderate pulmonary hypertension with EF of 55% and normal LV function. Seven weeks . History of -induced hypertension. History of pneumonia. History Interval history: Patient is a 33-year-old female with past medical history of CHF, - induced hypertension, now hypotensive, prior pneumonia, 7 weeks who presents to the ER with complaint of chest pain and shortness of breath a few hours prior to arrival. Patient states that she was having a sharp pain on her right side of her chest and her left side, she described a sharp pain associated with shortness of breath and hurts with deep breath. In the ER patient had a CTA chest x-ray which was negative, EKG showed no STEMI criteria, her cardiac enzymes were negative. Patient is placed in observation for monitoring for the chest pain. No new issues overnight. Hospitalist Physical - Constitutional Vitals: Temp Pulse Resp BP Pulse Ox 97.9 F 84 16 107/75 99 05/02/18 09:59 05/02/18 09:59 05/02/18 10:05 05/02/18 09:59 05/02/18 10:05 General appearance: Present: no acute distress - EENT Eyes: Present: PERRL, EOM intact ENT: hearing intact, clear oral mucosa, dentition normal - Neck Neck: Present: supple, normal ROM - Respiratory Respiratory effort: normal Respiratory: bilateral: CTA - Cardiovascular Rhythm: regular Heart Sounds: Present: S1 & S2. Absent: gallop, rub - Extremities Extremities: no ischemia, No edema, Full ROM - Abdominal General gastrointestinal: soft, non-tender, non-distended, normal bowel sounds - Integumentary Integumentary: Present: clear, warm, dry - Neurologic Neurologic: CNII-XII intact, moves all extremities Results - Labs CBC & Chem 7: 05/02/18 06:02 05/02/18 06:02 Labs: Laboratory Last Values WBC 4.8 K/mm3 (4.5-11.0) 05/02/18 06:02 RBC 4.24 M/mm3 (3.65-5.03) 05/02/18 06:02 Hgb 11.5 gm/dl (10.1-14.3) 05/02/18 06:02 Hct 34.7 % (30.3-42.9) 05/02/18 06:02 MCV 82 fl (79-97) 05/02/18 06:02 MCH 27 pg (28-32) L 05/02/18 06:02 MCHC 33 % (30-34) 05/02/18 06:02 RDW 14.3 % (13.2-15.2) 05/02/18 06:02 Plt Count 317 K/mm3 (140-440) 05/02/18 06:02 Lymph % (Auto) 47.3 % (13.4-35.0) H 05/02/18 06:02 [place] % (Auto) 5.8 % (0.0-7.3) 05/02/18 06:02 Eos % (Auto) 1.8 % (0.0-4.3) 05/02/18 06:02 Baso % (Auto) 0.6 % (0.0-1.8) 05/02/18 06:02 Lymph # 2.3 K/mm3 (1.2-5.4) 05/02/18 06:02 [place] # 0.3 K/mm3 (0.0-0.8) 05/02/18 06:02 Eos # 0.1 K/mm3 (0.0-0.4) 05/02/18 06:02 Baso # 0.0 K/mm3 (0.0-0.1) 05/02/18 06:02 Seg Neutrophils % 44.5 % (40.0-70.0) 05/02/18 06:02 Seg Neutrophils # 2.2 K/mm3 (1.8-7.7) 05/02/18 06:02 D-Dimer 230.21 ng/mlDDU (0-234) 05/01/18 21:35 Sodium 138 mmol/L (137-145) 05/02/18 06:02 Potassium 3.9 mmol/L (3.6-5.0) 05/02/18 06:02 Chloride 103.2 mmol/L (98-107) 05/02/18 06:02 Carbon Dioxide 26 mmol/L (22-30) 05/02/18 06:02 Anion Gap 13 mmol/L 05/02/18 06:02 BUN 8 mg/dL (7-17) 05/02/18 06:02 Creatinine 0.7 mg/dL (0.7-1.2) 05/02/18 06:02 Estimated GFR > 60 ml/min 05/02/18 06:02 BUN/Creatinine Ratio 11 % 05/02/18 06:02 Glucose 100 mg/dL (65-100) 05/02/18 06:02 Hemoglobin A1c 4.9 % (4-6) 05/02/18 06:02 Calcium 8.5 mg/dL (8.4-10.2) 05/02/18 06:02 Total Bilirubin 0.40 mg/dL (0.1-1.2) 05/01/18 21:35 AST 15 units/L (5-40) 05/01/18 21:35 ALT 8 units/L (7-56) 05/01/18 21:35 Alkaline Phosphatase 109 units/L (35-129) 05/01/18 21:35 Troponin T < 0.010 ng/mL (0.00-0.029) 05/01/18 21:35 NT-Pro-B Natriuret Pep 10.85 pg/mL (0-450) 05/02/18 Unknown Total Protein 6.4 g/dL (6.3-8.2) 05/01/18 21:35 Albumin 3.9 g/dL (3.9-5) 05/01/18 21:35 Albumin/Globulin Ratio 1.6 % 05/01/18 21:35 Triglycerides 41 mg/dL (2-149) 05/02/18 06:02 Cholesterol 122 mg/dL (50-199) 05/02/18 06:02 LDL Cholesterol Direct 67 mg/dL (50-130) 05/02/18 06:02 HDL Cholesterol 62 mg/dL (40-59) H 05/02/18 06:02 Cholesterol/HDL Ratio 1.96 % 05/02/18 06:02 HCG, Qual Negative (Negative) 05/01/18 21:35
[2018-05-02] MEDS: PEPCID PO SCH ×2 (12:17→22:15)
[2018-05-02] MEDS: SODIUM CHLORIDE FLUSH SYRINGE 10 ML IV SCH ×2 (12:17→22:17)
[2018-05-02] MEDS ORDERED: MIRALAX 3350 PO PRN (15:55)
--- NOTE | 2018-05-03 09:45 | Progress Note ---
Assessment and Plan Assessment and plan: Atypical chest pain. CT of the chest negative for PE. Lexiscan and echocardiogram ordered. Previous echocardiogram on 03/23 revealed moderate pulmonary hypertension with EF of 55% and normal LV function. Pulmonary hypertension. Pulmonary consultation. ? Anxiety/panic attacks. Psychiatric consultation. Seven weeks . History of -induced hypertension. History of pneumonia. History Interval history: Patient is a 33-year-old female with past medical history of CHF, - induced hypertension, now hypotensive, prior pneumonia, 7 weeks who presents to the ER with complaint of chest pain and shortness of breath a few hours prior to arrival. Patient states that she was having a sharp pain on her right side of her chest and her left side, she described a sharp pain associated with shortness of breath and hurts with deep breath. In the ER patient had a CTA chest x-ray which was negative, EKG showed no STEMI criteria, her cardiac enzymes were negative. Patient is placed in observation for monitoring for the chest pain. No new issues overnight. Hospitalist Physical - Constitutional Vitals: Temp Pulse Resp BP Pulse Ox 98.2 F 81 18 117/68 99 05/03/18 07:55 05/03/18 07:55 05/03/18 07:55 05/03/18 07:55 05/03/18 07:55 General appearance: Present: no acute distress - EENT Eyes: Present: PERRL, EOM intact ENT: hearing intact, clear oral mucosa, dentition normal - Neck Neck: Present: supple, normal ROM - Respiratory Respiratory effort: normal Respiratory: bilateral: CTA - Cardiovascular Rhythm: regular Heart Sounds: Present: S1 & S2. Absent: gallop, rub - Extremities Extremities: no ischemia, No edema, Full ROM - Abdominal General gastrointestinal: soft, non-tender, non-distended, normal bowel sounds - Integumentary Integumentary: Present: clear, warm, dry - Neurologic Neurologic: CNII-XII intact, moves all extremities Results - Labs CBC & Chem 7: 05/02/18 06:02 05/02/18 06:02 Labs: Laboratory Last Values WBC 4.8 K/mm3 (4.5-11.0) 05/02/18 06:02 RBC 4.24 M/mm3 (3.65-5.03) 05/02/18 06:02 Hgb 11.5 gm/dl (10.1-14.3) 05/02/18 06:02 Hct 34.7 % (30.3-42.9) 05/02/18 06:02 MCV 82 fl (79-97) 05/02/18 06:02 MCH 27 pg (28-32) L 05/02/18 06:02 MCHC 33 % (30-34) 05/02/18 06:02 RDW 14.3 % (13.2-15.2) 05/02/18 06:02 Plt Count 317 K/mm3 (140-440) 05/02/18 06:02 Lymph % (Auto) 47.3 % (13.4-35.0) H 05/02/18 06:02 Bell % (Auto) 5.8 % (0.0-7.3) 05/02/18 06:02 Eos % (Auto) 1.8 % (0.0-4.3) 05/02/18 06:02 Baso % (Auto) 0.6 % (0.0-1.8) 05/02/18 06:02 Lymph # 2.3 K/mm3 (1.2-5.4) 05/02/18 06:02 Bell # 0.3 K/mm3 (0.0-0.8) 05/02/18 06:02 Eos # 0.1 K/mm3 (0.0-0.4) 05/02/18 06:02 Baso # 0.0 K/mm3 (0.0-0.1) 05/02/18 06:02 Seg Neutrophils % 44.5 % (40.0-70.0) 05/02/18 06:02 Seg Neutrophils # 2.2 K/mm3 (1.8-7.7) 05/02/18 06:02 D-Dimer 230.21 ng/mlDDU (0-234) 05/01/18 21:35 Sodium 138 mmol/L (137-145) 05/02/18 06:02 Potassium 3.9 mmol/L (3.6-5.0) 05/02/18 06:02 Chloride 103.2 mmol/L (98-107) 05/02/18 06:02 Carbon Dioxide 26 mmol/L (22-30) 05/02/18 06:02 Anion Gap 13 mmol/L 05/02/18 06:02 BUN 8 mg/dL (7-17) 05/02/18 06:02 Creatinine 0.7 mg/dL (0.7-1.2) 05/02/18 06:02 Estimated GFR > 60 ml/min 05/02/18 06:02 BUN/Creatinine Ratio 11 % 05/02/18 06:02 Glucose 100 mg/dL (65-100) 05/02/18 06:02 Hemoglobin A1c 4.9 % (4-6) 05/02/18 06:02 Calcium 8.5 mg/dL (8.4-10.2) 05/02/18 06:02 Total Bilirubin 0.40 mg/dL (0.1-1.2) 05/01/18 21:35 AST 15 units/L (5-40) 05/01/18 21:35 ALT 8 units/L (7-56) 05/01/18 21:35 Alkaline Phosphatase 109 units/L (35-129) 05/01/18 21:35 Troponin T < 0.010 ng/mL (0.00-0.029) 05/02/18 18:17 NT-Pro-B Natriuret Pep 10.85 pg/mL (0-450) 05/02/18 Unknown Total Protein 6.4 g/dL (6.3-8.2) 05/01/18 21:35 Albumin 3.9 g/dL (3.9-5) 05/01/18 21:35 Albumin/Globulin Ratio 1.6 % 05/01/18 21:35 Triglycerides 41 mg/dL (2-149) 05/02/18 06:02 Cholesterol 122 mg/dL (50-199) 05/02/18 06:02 LDL Cholesterol Direct 67 mg/dL (50-130) 05/02/18 06:02 HDL Cholesterol 62 mg/dL (40-59) H 05/02/18 06:02 Cholesterol/HDL Ratio 1.96 % 05/02/18 06:02 HCG, Qual Negative (Negative) 05/01/18 21:35
--- NOTE | 2018-05-03 14:16 | Consultation ---
History of Present Illness Consult date: 05/03/18 Consult reason: chest pain History of present illness: The patient is a 33-year-old woman who was hospitalized here about a month ago, with cough and fever which began a week after a following a full-term . At that time, we were consulted for evaluation of "CHF", but the patient had no clinical or radiologic evidence of fluid overload or heart failure. Instead we recommended for the management of what appeared to be an acute pulmonary infection. The patient subsequently did well with her regimen of antibiotic therapy. An echocardiogram during that admission demonstrated normal left ventricular systolic function with ejection fraction of 55-60%, but she was noted with mild to moderate pulmonary hypertension, PA systolic pressure of 46. The patient is readmitted to the hospital at this time with chest pain. She came in 2 days ago, complaining of left-sided chest pain which was pleuritic, positional in character. Serial ECGs were normal sinus rhythm, normal ECG. Cardiac troponin levels were normal, and chest x-ray was normal. A CT of the chest in the emergency room was negative for pulmonary embolism. Cardiology consultation is requested today for the patient's chest pain. Comorbidities include chronic hypertension, which was exacerbated during . Past History Past Medical History: hypertension (-induced) Past Surgical History: No surgical history Social history: no significant social history Family history: no significant family history Medications and Allergies Allergies Allergy/AdvReac Type Severity Reaction Status Date / Time No Known Allergies Allergy Verified 05/01/18 19:08 Home Medications Medication Instructions Recorded Confirmed Last Taken Type Cholecalciferol (Vitamin D3) 50,000 unit PO QWEEK 03/14/18 05/02/18 2 Days Ago History [Vitamin D3] ~03/20/18 Ferrous Sulfate [Feosol 325 MG tab] 1 tab PO QDAY 03/14/18 05/02/18 04/30/18 History Pnv,Calcium 72/Iron/Folic Acid 1 tab PO QDAY 03/14/18 05/02/18 04/30/18 History [Pnv Plus Multivit Tab] Active Meds: Active Medications Acetaminophen (Tylenol) 650 mg PO Q4H PRN PRN Reason: Pain MILD(1-3)/Fever >100.5/MATTHEWS Aspirin (Ecotrin) 325 mg PO QDAY [facility] Famotidine (Pepcid) 20 mg PO BID [facility]IVI Last Admin: 05/02/18 22:15 Dose: 20 mg Documented by: Nitroglycerin (Nitrostat) 0.4 mg SL Q5M PRN PRN Reason: Chest Pain Ondansetron HCl (Zofran) 4 mg IV Q8H PRN PRN Reason: Nausea And Vomiting Polyethylene Glycol (Miralax 3350) 17 gm PO QDAY PRN PRN Reason: Constipation Last Admin: 05/02/18 16:39 Dose: 17 gm Documented by: Sodium Chloride (Sodium Chloride Flush Syringe 10 Ml) 10 ml IV PRN PRN PRN Reason: LINE FLUSH Sodium Chloride (Sodium Chloride Flush Syringe 10 Ml) 10 ml IV BID [facility] Last Admin: 05/02/18 22:17 Dose: 10 ml Documented by: Review of Systems Cardiovascular: chest pain, shortness of breath, no orthopnea, no palpitations, no rapid/irregular heart beat, no edema, no syncope, no lightheadedness Physical Examination Vital Signs Temp Pulse Resp BP Pulse Ox 97.8 F 72 16 110/78 98 05/01/18 19:08 05/01/18 19:08 05/01/18 19:08 05/01/18 19:08 05/01/18 19:08 General appearance: no acute distress HEENT: Positive: PERRL Neck: Positive: neck supple Cardiac: Positive: Reg Rate and Rhythm Lungs: Positive: clear to auscultation Neuro: Positive: Grossly Intact Abdomen: Positive: Soft Female genitourinary: deferred Skin: Positive: Clear Extremities: Absent: edema Results 05/02/18 06:02 05/02/18 06:02 EKG interpretations - Telemetry EKG Rhythm: Sinus Rhythm Assessment and Plan - Patient Problems (1) Chest pain Current Visit: Yes Status: Acute Qualifiers: Chest pain type: unspecified Qualified Code(s): R07.9 - Chest pain, unspecified Plan to address problem: Chest pain is atypical, appears musculoskeletal. We'll recommend a trial of Toradol intravenously for chest pain relief. No cardiac ischemic workup is indicated for musculoskeletal type chest pain. Patient is stable for discharge tomorrow if chest pain is resolved on anti- inflammatory agents. (2) Pulmonary hypertension Current Visit: Yes Status: Acute Plan to address problem: Patient had mild to moderate pulmonary hypertension, PA systolic pressure 46 following a full-term . A CT of the chest on this presentation was normal, no further cardiac workup is indicated at this time for mild pulmonary hypertension noted on echocardiogram post full-term .
--- NOTE | 2018-05-03 14:21 | Consultation ---
History of Present Illness Consult date: 05/03/18 Requesting physician: ALYSSA RAYMOND Reason for consult: pulmonary hypertension History of present illness: 33 y/o female, former smoker, but will not disclose for how many years admitted for the second time is as many months with chest pain and shortness of breath. She has had 3 CTA's done in 2 months time, all negative for PE. She has no structural evidence of COPD on any of the scans. Echo done in Mar, shows RVSP of 46. Per patient she has only felt this way since giving to her last child (G6-7, P3). Per patient she has several aches and pains but does have occasional chest pain. Sometimes it is pleuritic, sometimes not. She cannot really describe the pain. IMS has consulted us secondary to pulmonary hypertension seen on this ech from Mar. Per patient she has never taken any diet pills or weird medications. She does not know of she snores but states that she pauses sometimes when she is breathing (while awake). Her echo does not show any left sided heart failure. She was edematous on her admit in March and responded to lasix well. She is not swollen on exam today. She is also on room air and does not appear in any distress. Past History Past Medical History: hypertension (-induced) Past Surgical History: No surgical history Social history: other (former smoker) Family history: no significant family history Medications and Allergies Allergies Allergy/AdvReac Type Severity Reaction Status Date / Time No Known Allergies Allergy Verified 05/01/18 19:08 Home Medications Medication Instructions Recorded Confirmed Last Taken Type Cholecalciferol (Vitamin D3) 50,000 unit PO QWEEK 03/14/18 05/02/18 2 Days Ago History [Vitamin D3] ~03/20/18 Ferrous Sulfate [Feosol 325 MG tab] 1 tab PO QDAY 03/14/18 05/02/18 04/30/18 History Pnv,Calcium 72/Iron/Folic Acid 1 tab PO QDAY 03/14/18 05/02/18 04/30/18 History [Pnv Plus Multivit Tab] Active Meds: Active Medications Acetaminophen (Tylenol) 650 mg PO Q4H PRN PRN Reason: Pain MILD(1-3)/Fever >100.5/MATTHEWS Aspirin (Ecotrin) 325 mg PO QDAY [facility] Famotidine (Pepcid) 20 mg PO BID [facility] Last Admin: 05/02/18 22:15 Dose: 20 mg Documented by: Nitroglycerin (Nitrostat) 0.4 mg SL Q5M PRN PRN Reason: Chest Pain Ondansetron HCl (Zofran) 4 mg IV Q8H PRN PRN Reason: Nausea And Vomiting Polyethylene Glycol (Miralax 3350) 17 gm PO QDAY PRN PRN Reason: Constipation Last Admin: 05/02/18 16:39 Dose: 17 gm Documented by: Sodium Chloride (Sodium Chloride Flush Syringe 10 Ml) 10 ml IV PRN PRN PRN Reason: LINE FLUSH Sodium Chloride (Sodium Chloride Flush Syringe 10 Ml) 10 ml IV BID [facility] Last Admin: 05/02/18 22:17 Dose: 10 ml Documented by: Review of Systems All systems: negative Physical Examination Vital signs: Vital Signs Temp Pulse Resp BP Pulse Ox 97.8 F 72 16 110/78 98 05/01/18 19:08 05/01/18 19:08 05/01/18 19:08 05/01/18 19:08 05/01/18 19:08 General appearance: no acute distress, alert Eyes: non-icteric ENT: oropharynx moist Neck: supple, no lymphadenopathy Effort: normal Ascultation: Bilateral: clear Percussion: Bilateral: not dull Tactile fremitus: Bilateral: normal Cardiovascular: regular rate and rhythm Gastrointestinal: normoactive bowel sounds, soft, non-tender, non-distended Extremities: no cyanosis, no edema, pink and warm, pulses normal normal mental status, non-focal exam mood appropriate, anxious Results - Laboratory Findings CBC and BMP: 05/02/18 06:02 05/02/18 06:02 PT/INR, D-dimer D-Dimer 230.21 ng/mlDDU (0-234) 05/01/18 21:35 Abnormal lab findings: Abnormal Labs 05/01/18 05/01/18 05/02/18 21:35 21:35 06:02 MCH 27 L 27 L Lymph % (Auto) 46.3 H 47.3 H Creatinine 0.6 L HDL Cholesterol 05/02/18 06:02 MCH Lymph % (Auto) Creatinine HDL Cholesterol 62 H - Diagnostic Findings Chest x-ray: image reviewed CT scan - chest: report reviewed, image reviewed Assessment and Plan 33 y/o with pulmonary hypertension, mild to moderate with no exact etiology. 1 Needs outpatient PFT's including DLCO and Lung Volumes. This can be done in our office 2. Also needs to be screened for Sleep apnea, also can be done as outpatient. 3. Per patient has stress test and echo for today, will follow up echo to see if numbers have changed 4. Pulm morris, once cardiac work up done and cleared, no objection to discharge to home.
[2018-05-03] MEDS: TORADOL IV SCH ×2 (18:13→21:09)
[2018-05-03] MEDS: ECOTRIN PO SCH (18:13)
[2018-05-03] MEDS: PROTONIX PO SCH (18:13)
[2018-05-03] MEDS: SODIUM CHLORIDE FLUSH SYRINGE 10 ML IV SCH ×2 (18:15→21:11)
[2018-05-04] MEDS: TORADOL IV SCH ×2 (05:56→09:51)
[2018-05-04 07:06] LABS: Basophils % (Auto) 0.4 % (0.0-1.8); Eosinophils # (Auto) 0.1 K/mm3 (0.0-0.4); Eosinophils % (Auto) 2.2 % (0.0-4.3); Hematocrit 36.2 % (30.3-42.9); Hemoglobin 11.9 gm/dl (10.1-14.3); Lymphocytes # (Auto) 1.4 K/mm3 (1.2-5.4); Lymphocytes % (Auto) 36.4 % (13.4-35.0); Mean Corpuscular HGB Conc 33 % (30-34); Mean Corpuscular Volume 82 fl (79-97); Monocytes # (Auto) 0.3 K/mm3 (0.0-0.8); Monocytes % (Auto) 7.2 % (0.0-7.3); Platelet Count 293 K/mm3 (140-440); Red Cell Distribution Width 14.3 % (13.2-15.2)
[2018-05-04 07:12] LABS: BUN/Creatinine Ratio 20; Blood Urea Nitrogen 12 mg/dL (7-17); Calcium 8.6 mg/dL (8.4-10.2); Hemolysis Index 1
[2018-05-04] MEDS: ECOTRIN PO SCH (09:51)
[2018-05-04] MEDS: SODIUM CHLORIDE FLUSH SYRINGE 10 ML IV SCH (09:51)
[2018-05-04] MEDS: PROTONIX PO SCH (09:51)
[2018-05-04 12:26] VITALS: BP 109/70
--- NOTE | 2018-05-04 12:41 | Discharge Summary ---
Providers - Providers Date of Admission: 05/02/18 09:10 Date of discharge: 05/04/18 Attending physician: WAYLON WINTER 05/02/18 Consult to Cardiac Rehabilitation [CONS] Routine Reason For Exam: Phase I 05/03/18 09:45 Consult to Mental Health [CONS] Routine Reason For Exam: anxiety, panic attacks Place consult to:: pls Notified:: yes Consult to Physician [CONS] Routine Comment: Consulting Provider: GRICELDA PITT Physician Instructions: Reason For Exam: pulm htn 05/03/18 10:19 Consult to Physician [CONS] Routine Comment: Consulting Provider: LE MACK Physician Instructions: Reason For Exam: cp Primary care physician: RENETTA MORAN Hospitalization Condition: Fair Hospital course: Patient is 33 yo with hypertension, CHF , six weeks post- presented with chest pain and shortness of breath. She was evaluated in ED and admitted. patient was seen by cardiology and Pulmonology. She has pulmonary hypertension which was evaluated by Pulmonology. Cardiology determined that chest pain atypical, musculoskeletal. Chest pain and SOB subsided so she was discharged home on 05/04/18. Total time spent on discharge, 33 mins Disposition: DC-01 TO HOME OR SELFCARE - Discharge Diagnoses (1) Acute respiratory failure Status: Acute (2) Chest pain Status: Acute Qualifiers: Chest pain type: unspecified Qualified Code(s): R07.9 - Chest pain, unspecified (3) Pulmonary hypertension Status: Acute (4) Status post Status: Acute Core Measure Documentation - Palliative Care Palliative Care/ Comfort Measures: Not Applicable - Core Measures Any of the following diagnoses?: none Exam - Constitutional Vitals: Temp Pulse Resp BP Pulse Ox 97.7 F 67 18 109/70 100 05/04/18 12:23 05/04/18 12:23 05/04/18 12:23 05/04/18 12:23 05/04/18 12:23 Plan Activity: no restrictions Diet: low fat, low cholesterol, low salt Additional Instructions: 1.Follow up with Dr. Mack in 1 week. 2.Follow up with PCP in 1 week. 3.Follow up with Darrius Zurita in 1 week Follow up with: RENETTA MORAN MD [Primary Care Provider] - 7 Days Prescriptions: Famotidine [Pepcid] 20 mg PO BID #30 tablet Ibuprofen [Motrin 400 MG tab] 400 mg PO Q8H PRN #20 tablet PRN Reason: Chest Pain
--- NOTE | 2018-05-04 13:03 | Progress Note ---
Assessment and Plan - Patient Problems (1) Chest pain Current Visit: Yes Status: Acute Qualifiers: Qualified Code(s): R07.9 - Chest pain, unspecified Plan to address problem: Chest pain is atypical, appears musculoskeletal. We'll continue Toradol intravenously for chest pain relief. No cardiac ischemic workup is indicated for musculoskeletal type chest pain. Patient is stable for discharge. (2) Pulmonary hypertension Current Visit: Yes Status: Acute Plan to address problem: Patient had mild to moderate pulmonary hypertension, PA systolic pressure 46 following a full-term . A CT of the chest on this presentation was normal, no further cardiac workup is indicated at this time for mild pulmonary hypertension noted on echocardiogram post full-term . Subjective Date of service: 05/04/18 Interval history: Patient looks and feels better, her musculoskeletal chest pain has improved with IV Toradol. Objective Vital Signs Temp Pulse Pulse Resp BP BP Pulse Ox 05/04/18 12:23 97.7 F 67 18 109/70 100 05/04/18 08:19 98.5 F 05/04/18 08:18 83 18 97/64 100 05/04/18 05:44 96/65 05/04/18 04:20 98.1 F 78 20 87/51 99 05/03/18 23:57 98.1 F 90 20 92/62 100 05/03/18 22:00 72 16 05/03/18 20:45 98.0 F 85 20 91/69 100 05/03/18 20:06 100 05/03/18 20:00 72 05/03/18 16:10 98.0 F 93 H 20 102/71 100 - Physical Examination General: Appears Well, No Apparent Distress HEENT: Positive: PERRL Neck: Positive: neck supple Cardiac: Positive: Reg Rate and Rhythm Lungs: Positive: Decreased Breath Sounds Neuro: Positive: Grossly Intact Abdomen: Positive: Soft Skin: Positive: Clear Extremities: Absent: edema - Labs and Meds CBC 05/04/18 Range/Units 05:52 WBC 4.0 L (4.5-11.0) K/mm3 RBC 4.40 (3.65-5.03) M/mm3 Hgb 11.9 (10.1-14.3) gm/dl Hct 36.2 (30.3-42.9) % Plt Count 293 (140-440) K/mm3 Lymph # 1.4 (1.2-5.4) K/mm3 [place] # 0.3 (0.0-0.8) K/mm3 Eos # 0.1 (0.0-0.4) K/mm3 Baso # 0.0 (0.0-0.1) K/mm3 Comprehensive Metabolic Panel 05/04/18 Range/Units 05:52 Sodium 140 (137-145) mmol/L Potassium 4.1 (3.6-5.0) mmol/L Chloride 104.3 (98-107) mmol/L Carbon Dioxide 26 (22-30) mmol/L BUN 12 (7-17) mg/dL Creatinine 0.6 L (0.7-1.2) mg/dL Glucose 92 (65-100) mg/dL Calcium 8.6 (8.4-10.2) mg/dL
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
== END 2018-05-04 15:56 | disposition home or self-care (01) | DRG 313 ==
LOC: ED 18:35 → 4A 05-02 09:10
PROVIDERS: ADMIT Internal Medicine; ATTEND Internal Medicine
DX: R07.89 Other chest pain (principal); I27.20 Pulmonary hypertension, unspecified; I11.0 Hypertensive heart disease with heart failure; I50.9 Heart failure, unspecified; Z87.01 Personal history of pneumonia (recurrent); Z87.891 Personal history of nicotine dependence; F32.9 Major depressive disorder, single episode, unspecified; F43.10 Post-traumatic stress disorder, unspecified; F41.9 Anxiety disorder, unspecified
CPT/HCPCS: 36415; 71045; 71275; 80048; 80053; 80061; 83036; 83880; 84484; 84703; 85025; 85379; 93005; 93010; G0378; J1885; J2270; J2405; Q9967

== ENCOUNTER 2018-05-10 11:08 | Emergency (ER) | payer MEDICAID ==
[2018-05-10 11:37] VITALS: BP 114/78
[2018-05-10 14:01] LABS: Basophils % (Auto) 0.8 % (0.0-1.8); Eosinophils # (Auto) 0.1 K/mm3 (0.0-0.4); Eosinophils % (Auto) 1.3 % (0.0-4.3); Hematocrit 34.8 % (30.3-42.9); Hemoglobin 11.9 gm/dl (10.1-14.3); Lymphocytes # (Auto) 2.3 K/mm3 (1.2-5.4); Lymphocytes % (Auto) 42.6 % (13.4-35.0); Mean Corpuscular HGB Conc 34 % (30-34); Mean Corpuscular Volume 80 fl (79-97); Monocytes # (Auto) 0.3 K/mm3 (0.0-0.8); Monocytes % (Auto) 5.2 % (0.0-7.3); Platelet Count 316 K/mm3 (140-440); Red Blood Count 4.33 M/mm3 (3.65-5.03); Red Cell Distribution Width 14.6 % (13.2-15.2)
--- NOTE | 2018-05-10 14:01 | Emergency Department Report ---
HPI - General Chief Complaint: Dizziness Time Seen by Provider: 05/10/18 13:32 - HPI HPI: Room 30 The patient is a 33-year-old female presenting with a chief complaint of near syncope. The patient states for one week she's had 3-4 episodes of near synco pe. Patient states at times he is short of breath as palpitations and nausea without vomiting. Patient denies history of fever. The patient was seen by myself approximately one month ago for shortness of breath and a CT scan revealed alveolar infiltrates. The patient was started on antibiotics. The patient returned to the ED approximately one week ago for chest pain shortness of breath was admitted to the hospital for further evaluation. CT of the chest was negative for PE. Echocardiogram revealed mild pulmonary hypertension but normal left ventricular function. Patient was seen by cardiology has felt no further cardiac workup was necessary. The patient states her urine has been green in color and she does experience urinary frequency. Patient denies dysuria. Patient states she is currently asymptomatic at rest Location: [See above] Duration: [See above] Quality: Near syncope Severity: [See above] Modifying factors: [see above] Context: [see above] Mode of transportation: [not driving] ED Past Medical Hx - Past Medical History Previous Medical History?: Yes Hx Congestive Heart Failure: Yes Additional medical history: anemia. Preeclampsia with previous but not last - Surgical History Past Surgical History?: Yes Additional Surgical History: Ectopic , Right foot surgery, - Family History Family history: no significant - Social History Smoking Status: Former Smoker (none 1 year) Substance Use Type: None (denies illicit drug use) - Medications Home Medications: Home Medications Medication Instructions Recorded Confirmed Last Taken Type Cholecalciferol (Vitamin D3) 50,000 unit PO QWEEK 03/14/18 05/02/18 2 Days Ago History [Vitamin D3] ~03/20/18 Ferrous Sulfate [Feosol 325 MG tab] 1 tab PO QDAY 03/14/18 05/02/18 04/30/18 History Pnv,Calcium 72/Iron/Folic Acid 1 tab PO QDAY 03/14/18 05/02/18 04/30/18 History [Pnv Plus Multivit Tab] Famotidine [Pepcid] 20 mg PO BID #30 tablet 05/04/18 Unknown Rx Ibuprofen [Motrin 400 MG tab] 400 mg PO Q8H PRN #20 tablet 05/04/18 Unknown Rx Meclizine [Antivert] 25 mg PO TID PRN #20 tablet 05/10/18 Unknown Rx ED Review of Systems ROS: Stated complaint: FAINTING SPELLS Other details as noted in HPI Constitutional: denies: fever Eyes: denies: eye pain ENT: denies: throat pain Respiratory: shortness of breath Cardiovascular: palpitations Endocrine: no symptoms reported Gastrointestinal: nausea. denies: vomiting Genitourinary: frequency Musculoskeletal: back pain Neurological: other (near syncope) Physical Exam - Physical Exam Vital Signs: Vital Signs 05/10/18 11:33 Temperature 98 F Pulse Rate 78 Respiratory 20 Rate Blood Pressure 114/78 O2 Sat by Pulse 100 Oximetry Physical Exam: GENERAL: The patient is well-developed well-nourished []. [] HEENT: Normocephalic. Atraumatic. Extraocular motions are intact. Patient has moist mucous membranes. NECK: Supple. Trachea midline CHEST/LUNGS: Clear to auscultation. There is no respiratory distress noted. HEART/CARDIOVASCULAR: Regular. There is no tachycardia. There is no gallop rub or murmur. ABDOMEN: Abdomen is soft, nontender. Patient has normal bowel sounds. There is no abdominal distention. SKIN: There is no rash. There is no edema. There is no diaphoresis. NEURO: The patient is awake, alert, and oriented. The patient is cooperative. The patient has no focal neurologic deficits. The patient has normal speech. Cranial nerves II through XII grossly intact, no drift MUSCULOSKELETAL: There is no evidence of acute injury. ED Course Vital Signs 05/10/18 11:33 Temperature 98 F Pulse Rate 78 Respiratory 20 Rate Blood Pressure 114/78 O2 Sat by Pulse 100 Oximetry ED Medical Decision Making - Lab Data Result diagrams: 05/10/18 13:51 05/10/18 13:51 Laboratory Tests 05/10/18 05/10/18 05/10/18 13:51 13:51 13:51 WBC 5.4 RBC 4.33 Hgb 11.9 Hct 34.8 MCV 80 MCH 28 MCHC 34 RDW 14.6 Plt Count 316 Lymph % (Auto) 42.6 H [place] % (Auto) 5.2 Eos % (Auto) 1.3 Baso % (Auto) 0.8 Lymph # 2.3 [place] # 0.3 Eos # 0.1 Baso # 0.0 Seg Neutrophils % 50.1 Seg Neutrophils # 2.7 Sodium 139 Potassium 3.7 Chloride 106.6 Carbon Dioxide 24 Anion Gap 12 BUN 7 Creatinine 0.7 Estimated GFR > 60 BUN/Creatinine Ratio 10 Glucose 103 H Calcium 9.3 Magnesium Total Bilirubin 0.60 AST 15 ALT 9 Alkaline Phosphatase 91 Total Creatine Kinase 70 CK-MB (CK-2) < 1.0 CK-MB (CK-2) Rel Index 1.4 Troponin T < 0.010 Total Protein 7.0 Albumin 3.9 Albumin/Globulin Ratio 1.3 TSH Free T4 HCG, Qual Negative Urine Color Urine Turbidity Urine pH Ur Specific [place] Urine Protein Urine Glucose (UA) Urine Ketones Urine Blood Urine Nitrite Urine Bilirubin Urine Urobilinogen Ur Leukocyte Esterase Urine WBC (Auto) Urine RBC (Auto) U Epithel Cells (Auto) Urine Bacteria (Auto) Urine Mucus 05/10/18 05/10/18 05/10/18 13:51 13:51 15:44 WBC RBC Hgb Hct MCV MCH MCHC RDW Plt Count Lymph % (Auto) [place] % (Auto) Eos % (Auto) Baso % (Auto) Lymph # [place] # Eos # Baso # Seg Neutrophils % Seg Neutrophils # Sodium Potassium Chloride Carbon Dioxide Anion Gap BUN Creatinine Estimated GFR BUN/Creatinine Ratio Glucose Calcium Magnesium 1.90 Total Bilirubin AST ALT Alkaline Phosphatase Total Creatine Kinase CK-MB (CK-2) CK-MB (CK-2) Rel Index Troponin T Total Protein Albumin Albumin/Globulin Ratio TSH 1.060 Free T4 1.45 HCG, Qual Urine Color Yellow Urine Turbidity Clear Urine pH 7.0 Ur Specific [place] 1.010 Urine Protein <15 mg/dl Urine Glucose (UA) Neg Urine Ketones Neg Urine Blood Neg Urine Nitrite Neg Urine Bilirubin Neg Urine Urobilinogen < 2.0 Ur Leukocyte Esterase Tr Urine WBC (Auto) 1.0 Urine RBC (Auto) < 1.0 U Epithel Cells (Auto) 1.0 Urine Bacteria (Auto) 1+ Urine Mucus Few - EKG Data -: EKG Interpreted by Me EKG shows normal: sinus rhythm Rate: normal - EKG Data When compared to previous EKG there are: no significant change Interpretation: nonspecific ST-T wave stephany (T-wave inversion in lead V3) - Radiology Data Radiology results: report reviewed (CT head), image reviewed (CT head) [facility] [address] [place] [address] Cat Scan Report Signed Patient: LOLLY KILGORE MR#: [id number] : 1985 Acct:[id number] Age/Sex: 33 / F ADM Date: 05/10/18 Loc: ED Attending Dr: Ordering Physician: PAO MONK MD Date of Service: 05/10/18 Procedure(s): CT head/brain wo con Accession Number(s): [id number] cc: PAO MONK MD FINAL REPORT EXAM: CT HEAD/BRAIN WO CON HISTORY: near syncope TECHNIQUE: CT of the Head without IV contrast. PRIORS: None currently available. FINDINGS: There is no evidence for acute ischemia. There is no hemorrhage. There is no midline shift. There is no hydrocephalus. There is no mass. Age appropriate johnson-white matter attenuation is noted. There is no calvarial fracture. The temporal bones demonstrate aerated mastoid air cells. The middle ears appear unremarkable. Paranasal sinuses are unremarkable. Globes are intact. IMPRESSION: No acute intracranial findings. Transcribed By: TYM Dictated By: ADAMA ARTHUR MD Electronically Authenticated By: ADAMA ARTHUR MD Signed Date/Time: 05/10/18 1639 DD/ 1613 TD/TT: 05/10/18 1613 - Differential Diagnosis anxiety, symptomatic anemia, dysrhythmia, electrolyte imbalance Critical care attestation.: If time is entered above; I have spent that time in minutes in the direct care of this critically ill patient, excluding procedure time. ED Disposition Clinical Impression: Lightheadedness Disposition: DC-01 TO HOME OR SELFCARE Is pt being admited?: No Does the pt Need Aspirin: No Condition: Stable Instructions: Near Syncope (ED), Lightheadedness (ED) Additional Instructions: Return to the emergency department immediately should you develop worsening symptoms, fever, inability to tolerate food or liquid or any other concerns. Prescriptions: Meclizine [Antivert] 25 mg PO TID PRN #20 tablet PRN Reason: Vertigo Referrals: PRIMARY CAREMD [Primary Care Provider] - 3-5 Days LE MACK MD [Staff Physician] - 3-5 Days (Dr Mack is a fire investigator. Please follow up with him for further evaluation) KELIN FAROOQ MD [Staff Physician] - 3-5 Days (Dr Farooq is a neurologist. Please follow up with him for further evaluation) Time of Disposition: 16:58
[2018-05-10 14:19] LABS: Creatine Kinase MB < 1.0 ng/mL (0.0-4.0)
[2018-05-10 14:22] LABS: Alanine Aminotransferase 9 units/L (7-56); Albumin 3.9 g/dL (3.9-5); BUN/Creatinine Ratio 10; Blood Urea Nitrogen 7 mg/dL (7-17); Calcium 9.3 mg/dL (8.4-10.2); Hemolysis Index 3
[2018-05-10 14:28] LABS: Free T4 (Free Thyroxine) 1.45 ng/dL (0.76-1.46)
[2018-05-10 16:10] LABS: Bacteria,Urine 1+ /HPF (Negative); Bilirubin,Urine NEG (Negative); Blood,Urine NEG (Negative); Color,Urine Yellow (Yellow); Mucus,Urine FEW /HPF; Protein,Urine <15 mg/dL mg/dL (Negative); RBC,Urine < 1.0 /HPF (0.0-6.0); Urobilinogen,Urine < 2.0 mg/dL (<2.0)
--- NOTE | 2018-05-10 16:39 | Cat Scan Report ---
FINAL REPORT EXAM: CT HEAD/BRAIN WO CON HISTORY: near syncope TECHNIQUE: CT of the Head without IV contrast. PRIORS: None currently available. FINDINGS: There is no evidence for acute ischemia. There is no hemorrhage. There is no midline shift. There is no hydrocephalus. There is no mass. Age appropriate johnson-white matter attenuation is noted. There is no calvarial fracture. The temporal bones demonstrate aerated mastoid air cells. The middle ears appear unremarkable. Paranasal sinuses are unremarkable. Globes are intact. IMPRESSION: No acute intracranial findings.
== END 2018-05-10 17:05 | disposition home or self-care (01) ==
LOC: ED 11:08
DX: R55 Syncope and collapse (principal); I50.9 Heart failure, unspecified; Z87.891 Personal history of nicotine dependence
CPT/HCPCS: 36415; 70450; 80053; 81001; 82550; 82553; 83735; 84439; 84443; 84484; 84703; 85025; 93005; 93010; 99284

== ENCOUNTER 2019-02-26 18:53 | Emergency (ER) | payer MEDICAID, OTHER ==
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
[2019-02-26] MEDS ORDERED: traMADol 50 MG TAB PO ONE (22:22)
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
[2019-02-27 01:16] VITALS: BP 106/70
== END 2019-02-26 23:40 | disposition home or self-care (01) ==
LOC: ED 18:53
DX: S16.1XXA Strain of muscle, fascia and tendon at neck level, initial encounter (principal); S39.012A Strain of muscle, fascia and tendon of lower back, initial encounter; I50.9 Heart failure, unspecified; D64.9 Anemia, unspecified; F17.200 Nicotine dependence, unspecified, uncomplicated; F12.10 Cannabis abuse, uncomplicated; Z98.890 Other specified postprocedural states; Z79.899 Other long term (current) drug therapy; V49.59XA Passenger injured in collision with other motor vehicles in traffic accident, initial encounter; Y93.89 Activity, other specified; Y92.410 Unspecified street and highway as the place of occurrence of the external cause; Y99.8 Other external cause status
CPT/HCPCS: 72040